=== PATIENT | female | born 1965 | race Caucasian/White ===

== ENCOUNTER → 2020-04-27 | Outpatient (CLI) | payer OTHER ==
--- NOTE | 2020-04-27 13:22 | KCIC ---
EXAM: Lumbar spine, 5 views. HISTORY: Pain. COMPARISON: None. FINDINGS: 5 views of the lumbar spine are obtained. There is mild lumbar hyperlordosis. There is no significant listhesis. The vertebral bodies are normal in height and the disc spaces are preserved. IMPRESSION: No acute osseous finding. Electronically signed by: Savi Castro MD (04/27/2020 1:19 PM) [id number]
== END ==
LOC: KCIC 10:47
PROVIDERS: ATTEND Internal Medicine Rheumatology
DX: M40.46 Postural lordosis, lumbar region (principal)
CPT/HCPCS: 72110